=== PATIENT | female | born 1990 | race Caucasian/White ===

== ENCOUNTER 2022-05-17 02:21 | Inpatient (IN) | payer BC, SELFPAY ==
[2022-05-17] VITALS (48 sets, daily range): BP systolic 79–123; BP diastolic 25–80; PULSE 67–125; RESP 16–20; TEMP 36.6–36.9; O2SAT 96–100; BMI 30.3
[2022-05-17 03:08] LABS: Basophils Absolute Auto 0.01 K/uL (0.00-0.30); Basophils Percent Auto 0.1 % (0.0-3.0); Eosinophils Absolute Auto 0.13 K/uL (0.00-0.50); Eosinophils Percent Auto 1.3 % (0.0-7.0); Hematocrit 37.2 % (33.0-51.0); Hemoglobin* 12.7 gm/dL (12.0-16.0); Immature Granulocytes Abs Auto 0.06 K/uL (0.00-0.30); Lymphocytes Absolute Auto 2.84 K/uL (0.90-2.90); Lymphocytes Percent Auto 28.9 % (20-44); Mean Corpuscular HGB Conc 34 gm/dL (32-36); Mean Corpuscular Hemoglobin 31 pg (26-34); Mean Corpuscular Volume 91 fL (80-100); Monocytes Percent Auto 6.7 % (0.0-11.0); Neutrophils Absolute Auto 6.13 K/uL (1.7-7.0); Neutrophils Percent Auto 62.4 % (42.0-72.0); Platelet Count* 331 K/uL (140-440); Red Blood Count 4.07 m/uL (4.00-5.20); Slide Review Reflex No; White Blood Count* 9.83 K/uL (4.50-11.00)
--- NOTE | 2022-05-17 03:13 | ED_ITS ---
HPI - Female Genitourinary General Date Seen: 05/17/22 Chief complaint: Unspecified Complaint, Adult Stated complaint: anal bleeding Time Seen by Provider: 05/17/22 02:30 Source: patient, RN notes reviewed and old records reviewed Mode of arrival: ambulatory Limitations: no limitations History of Present Illness HPI Narrative: Zonia is a 32-year-old female with history of Nexplanon use, otherwise healthy, who comes to the emergency room with concerns regarding rectal bleeding. Patient states that she was engaged in intercourse tonight and states that her partner got ?excited? and his penis entered her anus. She notes that she has had anal sex in the past and that they were using lubrication but she has had bleeding since that time. She states she is sore in the anal area. She denies abdominal pain, fever, vomiting. She states that she has a towel in her underwear and that she can feel blood coming out every time she moves. She denies chest pain lightheadedness or shortness of breath. She states that she did have a period 2 weeks ago but it was very light. She states that she does not have normal periods. Related Data Home Medications Medication Instructions Recorded Confirmed No Known Home Medications 05/17/22 05/17/22 Allergies Allergy/AdvReac Type Severity Reaction Status Date / Time Iodinated Contrast Media Allergy Intermediate Hives Verified 05/17/22 02:35 Penicillins Allergy Intermediate Hives Verified 05/17/22 02:35 Review of Systems Status of ROS: Reports: 10 or more systems reviewed and unremarkable except as noted in History and below Narrative: Patient denies problems with anesthesia in herself or her family. No recent illnesses. Const: Denies: fever or chills ENMT: Denies: throat pain Cardio: Denies: chest pain, palpitations or shortness of breath with exertion Resp: Denies: shortness of breath or cough GI: Denies: abdominal pain, nausea or vomiting : Reports: pain during intercourse (anal); Denies: painful urination Musculo: Denies: back pain Neuro: Denies: headache Psych: Reports: anxiety Endo: Denies: excessive urination Nabil/Lymph: Denies: easy bruising or easy bleeding Allergy/Immuno: Denies: hives [facility] Medical History (Updated 05/17/22 @ 05:21 by Sanam Yao MD) Graves' disease Vitamin D deficiency Surgical History (Updated 05/17/22 @ 04:30 by Caitie Brian MD) Complication of internal fixation device of left humerus Family History (Updated 05/17/22 @ 04:31 by Caitie Brian MD) Other Diabetes Social History (Updated 05/17/22 @ 04:31 by Catiie Brian MD) Narrative: Lives in [place] with her 3 children, age 14, 10 and 6. Not currently employed. She vapes. No alcohol or drug use. Smoking Status: Never smoker Do you use any of these nicotine containing products: None Second hand tobacco smoke exposure: No How often do you have a drink containing alcohol: never How often do you have six or more drinks on one occasion: Never AUDIT-C Alcohol total score: 0 Non-prescribed substance use: denies use Exam Const: Vital Signs, click to edit/add: Vital Signs - 24 hr 05/17/22 02:30 05/17/22 03:09 05/17/22 03:21 Temperature 98.0 F Pulse Rate 95 Pulse Rate [Right Pulse Oximeter] 84 Respiratory Rate 16 Respiratory Rate [ Rectum] 16 Blood Pressure 106/70 Blood Pressure [Ri ght Upper Arm] 123/71 Pulse Oximetry 99 99 Oxygen Delivery Me thod Room Air 05/17/22 03:33 05/17/22 04:01 05/17/22 04:07 Temperature Pulse Rate 80 75 81 Pulse Rate [Right Pulse Oximeter] Respiratory Rate Respiratory Rate [ Rectum] Blood Pressure 107/64 85/62 L 90/67 Blood Pressure [Ri ght Upper Arm] Pulse Oximetry 99 100 100 Oxygen Delivery Me thod 05/17/22 04:12 05/17/22 04:15 05/17/22 04:21 Temperature Pulse Rate 83 74 96 Pulse Rate [Right Pulse Oximeter] Respiratory Rate Respiratory Rate [ Rectum] Blood Pressure 93/72 92/50 L 101/40 L Blood Pressure [Ri ght Upper Arm] Pulse Oximetry 100 100 100 Oxygen Delivery Me thod 05/17/22 04:41 05/17/22 05:11 Temperature 98.5 F Pulse Rate 103 H Pulse Rate [Right Pulse Oximeter] 79 Respiratory Rate 16 Respiratory Rate [ Rectum] Blood Pressure 102/68 Blood Pressure [Ri ght Upper Arm] 110/74 Pulse Oximetry 100 100 Oxygen Delivery Me thod Room Air Documenting provider has reviewed patient's vital signs: yes Common normals: no apparent distress, oriented x3, no limitations and healthy appearing General appearance: cooperative, well kempt and anxious (States that she is scared.) HENMT: Common normals: normocephalic, external ears normal and external nose normal Head and scalp: normocephalic Face and sinus: normal facial exam Nose: external nose normal External ear: external ears normal Mouth: oral and palatal mucosa normal Eye: Common normals: PERRL General eye: normal appearance of both eyes Pupil: PERRL Neck & C-Spine: Common normals: full ROM, no lymphadenopathy and supple Resp: Common normals: normal respiratory effort and clear to auscultation bilaterally Effort & inspection: able to speak in complete sentences Auscultation: clear to auscultation bilaterally Cardio: Common normals: regular rate and regular rhythm Rate: regular rate Rhythm: regular rhythm GI: Common normals: soft to palpation and non-tender Palpation: soft Rectal Exam - Female: no fissure noted and no hemorrhoids noted : Common normals: no CVA tenderness Bladder/kidney exam: no CVA tenderness Speculum exam - vagina: vaginal bleeding Amount: large/heavy and with clots and other (Questionable vaginal laceration with large amount of blood coming from left) OB/external & speculum: Yes vaginal bleeding Other: Unable to clearly see cervix with the large amount of blood that is rapidly filling the vaginal vault. Ring forceps and gauze used to try to clear this but again a rapidly filling vaginal vault. Patient does have discomfort with insertion of the speculum. Anal area appears to be without evidence of trauma. There is no blood coming from this area. Back & Pelvis: Common normals: no CVA tenderness Extremity: Common normals: normal to inspection Neuro: Common normals: oriented x3 Psych: Common normals: mental status grossly normal Appearance: well kempt Skin: Common normals: no rashes or lesions noted General skin exam: no rashes or lesions noted Course Course Hospital Course: Due to the large amount of bleeding I consulted with Dr. Brian, nurse obgyn entry level sales consultant. CBC, basic panel, INR, saline lock, 1 L normal saline and TXA 1 g IV ordered. Type and screen 2 units. Reevaluation(s) Reevaluation #1: Patient noted to become hypotensive. Dr. Brian present at this time. Will be taking patient to the OR as she thinks that she has identified at least 1 or 2 vaginal lacerations. Will transfuse as well and give 1 L saline in addition to original L. Vital Signs Vital signs: Initial Vital Signs Temperature 98.0 F 05/17/22 02:30 Temperature Source Temporal Artery Scan 05/17/22 02:30 Pulse Rate 84 05/17/22 02:30 Respiratory Rate 16 05/17/22 02:30 Blood Pressure 123/71 05/17/22 02:30 Blood Pressure Mean 88 05/17/22 02:30 Blood Pressure Position Sitting 05/17/22 02:30 Pulse Oximetry 99 05/17/22 02:30 Oxygen Delivery Method 05/17/22 02:30 Vital Signs Temperature 98.0 F 05/17/22 02:30 Pulse Rate 84 05/17/22 02:30 Respiratory Rate 16 05/17/22 02:30 Blood Pressure 123/71 05/17/22 02:30 Pulse Oximetry 99 05/17/22 02:30 Oxygen Delivery Method 05/17/22 02:30 Temperature 98.5 F 05/17/22 05:11 Pulse Rate 79 05/17/22 05:11 Respiratory Rate 16 05/17/22 05:11 Blood Pressure 110/74 05/17/22 05:11 Pulse Oximetry 100 05/17/22 05:11 Oxygen Delivery Method 05/17/22 05:11 MDM - Female Genitourinary MDM Narrative Medical decision making narrative: 1. Vaginal wall trauma with bleeding-patient will be taken to the OR under the care of Dr. Brian. Blood pressure 92 systolic at this time. Placed patient in Trendelenburg. Patient is not tachycardic. Hemoglobin 12.7. HCG qualitative serum is negative. 2. Admitted to same-day surgery. Medical Records Attestation: I reviewed the patient's medical records. Lab Data Attestation: I reviewed the patient's lab results. Labs: Lab Results 05/17/22 05/17/22 05/17/22 Range/Units 03:00 03:00 03:40 WBC 9.83 (4.50-11.00) K/uL RBC 4.07 (4.00-5.20) m/uL Hgb 12.7 (12.0-16.0) gm/dL Hct 37.2 (33.0-51.0) % MCV 91 (80-100) fL MCH 31 (26-34) pg MCHC 34 (32-36) gm/dL RDW Coeff of Jackie 12.0 (11.5-15.5) % Plt Count 331 (140-440) K/uL Neut % (Auto) 62.4 (42.0-72.0) % Lymph % (Auto) 28.9 (20-44) % [place] % (Auto) 6.7 (0.0-11.0) % Eos % (Auto) 1.3 (0.0-7.0) % Baso % (Auto) 0.1 (0.0-3.0) % Neut # (Auto) 6.13 (1.7-7.0) K/uL Lymph # (Auto) 2.84 (0.90-2.90) K/uL [place] # (Auto) 0.70 (0.00-0.90) K/UL Eos # (Auto) 0.13 (0.00-0.50) K/uL Baso # (Auto) 0.01 (0.00-0.30) K/uL Abs Immat Gran (auto) 0.06 (0.00-0.30) K/uL INR (0.91-1.10) Sodium (135-149) mmol/L Potassium (3.6-5.1) mmol/L Chloride (96-114) mmol/L Carbon Dioxide (20-32) mmol/L BUN (5-24) mg/dL Creatinine (0.5-1.5) mg/dL Estimated Creat Clear Estimated GFR ml/min Glucose (60-115) mg/dL Calcium (8.4-10.6) mg/dL HCG, Qual Negative (Negative) SARS-CoV-2 (PCR) (Negative) Blood Type O Positive Antibody Screen NEGATIVE Crossmatch ([facility]) See Detail 05/17/22 05/17/22 05/17/22 Range/Units 03:40 03:40 04:10 WBC (4.50-11.00) K/uL RBC (4.00-5.20) m/uL Hgb (12.0-16.0) gm/dL Hct (33.0-51.0) % MCV (80-100) fL MCH (26-34) pg MCHC (32-36) gm/dL RDW Coeff of Jackie (11.5-15.5) % Plt Count (140-440) K/uL Neut % (Auto) (42.0-72.0) % Lymph % (Auto) (20-44) % [place] % (Auto) (0.0-11.0) % Eos % (Auto) (0.0-7.0) % Baso % (Auto) (0.0-3.0) % Neut # (Auto) (1.7-7.0) K/uL Lymph # (Auto) (0.90-2.90) K/uL [place] # (Auto) (0.00-0.90) K/UL Eos # (Auto) (0.00-0.50) K/uL Baso # (Auto) (0.00-0.30) K/uL Abs Immat Gran (auto) (0.00-0.30) K/uL INR 1.06 (0.91-1.10) Sodium 138 (135-149) mmol/L Potassium 3.4 L (3.6-5.1) mmol/L Chloride 105 (96-114) mmol/L Carbon Dioxide 22 (20-32) mmol/L BUN 15 (5-24) mg/dL Creatinine 0.6 (0.5-1.5) mg/dL Estimated Creat Clear 133.69 Estimated GFR 121 ml/min Glucose 152 H (60-115) mg/dL Calcium 8.7 (8.4-10.6) mg/dL HCG, Qual (Negative) SARS-CoV-2 (PCR) Negative SARS-CoV-2 (Negative) Blood Type Antibody Screen Crossmatch ([facility]) Critical Care Time Critical Care Time Critical Care Time: Yes Attestation: The patient required my highest level preparedness to intervene emergently and I personally spent this critical care time directly and personally managing the patient. This critical care time included: Obtaining a history; Examining the patient; Pulse oximetry; Ordering and reviewing of studies; Arranging urgent treatment with development of a management plan; Evaluation of patients response to treatment; Frequent reassessment discussions with other providers. This critical care time was performed to assess and manage the high probability of imminent life-threatening deterioration that could result in multiorgan failure. It was exclusive of separate billable procedures and treating other patients and teaching time. Total Critical Care Time in Minutes: 90 Discharge Plan Discharge Clinical Impression: Vaginal laceration, Vaginal bleeding Patient Disposition: Admitted As Inpatient Condition: Critical
[2022-05-17] MEDS: 0.9 % SODIUM CHLORIDE 1000 ml 1,000 ML IV ×2 (03:18→04:20)
[2022-05-17 03:22] LABS: HCG Qualitative Serum* Negative (Negative)
[2022-05-17 04:00] LABS: Chloride* 105 mmol/L (96-114); Potassium* 3.4 mmol/L (3.6-5.1); Sodium* 138 mmol/L (135-149)
[2022-05-17 04:03] LABS: Blood Urea Nitrogen* 15 mg/dL (5-24); Calcium* 8.7 mg/dL (8.4-10.6); Carbon Dioxide* 22 mmol/L (20-32); Creatinine* 0.6 mg/dL (0.5-1.5); Est. Creatinine Clearance* 133.69; Estimated Glomerular Filt Rate 121 ml/min; Glucose* 152 mg/dL (60-115)
[2022-05-17 04:12] LABS: INR 1.06 (0.91-1.10); Prothrombin Time 14.3 Seconds
--- NOTE | 2022-05-17 04:23 | P.GYNCN_ITS ---
EXTRACT OPERATOR - CN: HPI Data of Consult Date Seen: 05/17/22 Requesting Physician: Dr. Sanam Yao Primary Care Provider: [facility] Provider Generic Consult Narrative Narrative: Josiane Son is a 32 year old female who presents with heavy vaginal bleeding. Bleeding began at around 1:45 AM, following a particularly rough sexual encounter. She reports consentual intercourse with her partner. This was not their first sexual encounter, and she last had intercourse a few days ago. Bleeding has been heavy since 1:45 AM. Upon presentation to ER, she had low BP and Dr. Yao was unable to see intravaginal injury due to the amount of blood. Since that time, patient has developed pain. 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 One . Two vaginal births, one Using Nexplanon for the last 6 years. She has irregular, light bleeding episodes with Nexplanon. Due for replacement in 2022. No hx of abn pap No hx STI cc:: CC: Review of Systems Narrative: + for pelvic pain + for heavy vaginal bleeding + for lightheadedness PFSH PFSH Medical History (Updated 05/17/22 @ 04:37 by Caitie Brian MD) Graves' disease Vitamin D deficiency Surgical History (Updated 05/17/22 @ 04:30 by Caitie Brian MD) Complication of internal fixation device of left humerus Family History (Updated 05/17/22 @ 04:31 by Caitie Brian MD) Other Diabetes Social History (Updated 05/17/22 @ 04:31 by Caitie Brian MD) Narrative: Lives in [place] with her 3 children, age 14, 10 and 6. Not currently employed. She vapes. No alcohol or drug use. Smoking Status: Never smoker Do you use any of these nicotine containing products: None Second hand tobacco smoke exposure: No How often do you have a drink containing alcohol: never How often do you have six or more drinks on one occasion: Never AUDIT-C Alcohol total score: 0 Non-prescribed substance use: denies use Meds Home Medications and Allergies Home Medications Medication Instructions Recorded Confirmed Type No Known Home Medications 05/17/22 05/17/22 History Allergies Allergy/AdvReac Type Severity Reaction Status Date / Time Iodinated Contrast Media Allergy Intermediate Hives Verified 05/17/22 02:35 Penicillins Allergy Intermediate Hives Verified 05/17/22 02:35 EXTRACT OPERATOR - Exam Physical Exam: Vital signs: Temp Pulse Resp BP Pulse Ox O2 Del Method 98.0 F 75 16 85/62 L 100 05/17/22 02:30 05/17/22 04:01 05/17/22 03:09 05/17/22 04:01 05/17/22 04:01 05/17/22 02:30 Narrative: Gen - NAD HEENT - NC/AT Pelvic exam - approximately 500 cc of liquid / clotted blood on bed between patient legs. Mons, labia majora, labia minora, clitoris all normal in appearance. Perineum and anus normal in appearance. Eccymosis noted over vaginal epithelium 2 cm above introitus at 7 o'clock. No active bleeding at this site. Speculum exam reveals active bleeding from vaginal vault, obscuring view. Patient is poorly tolerant of exam due to pain. EXTRACT OPERATOR - Results Labs Labs: Short CBC 05/17/22 Range/Units 03:00 WBC 9.83 (4.50-11.00) K/uL Hgb 12.7 (12.0-16.0) gm/dL Hct 37.2 (33.0-51.0) % Plt Count 331 (140-440) K/uL BMP 05/17/22 03:40 Sodium 138 Potassium 3.4 L Chloride 105 Carbon Dioxide 22 BUN 15 Creatinine 0.6 Glucose 152 H Calcium 8.7 HCG negative. Assessment and Plan Assessment and plan (1) Contusion of vagina: Status: Acute Assessment and Plan: Suspect laceration in upper vagina as cause of heavy, active bleeding. I recommended preparation of two units PRBCs given her low BP and continued bleeding. I also recommended exam under anesthesia with likely vaginal laceration repair. Discussed risks of procedure, including bleeding, infection, damage to surrounding organs, risks of anesthesia. Consent form reviewed with and signed by patient. Will plan for admission for observation after surgery. (2) Vaginal bleeding: Status: Acute
[2022-05-17 04:56] LABS: SARS PCR* Negative SARS-CoV-2 (Negative)
[2022-05-17] MEDS: LACTATED RINGERS 1000 ML 1,000 ML 100 ML IV ×2 (05:04→06:05)
[2022-05-17] MEDS: CLINDAMYCIN 900 MG/6 ML VIAL IVPB (05:20)
[2022-05-17] MEDS: GENTAMICIN 320 MG in 0.9 % SODIUM CHLORIDE 100 ml 100 ML 108 MG IVPB (05:53)
--- NOTE | 2022-05-17 06:50 | W.ANESCHARGE ---
Anesthesia Charges Start Date/Time Anesthesia Start Date: 05/17/22 Anesthesia Start Time: 05:04 Stop Date/Time Anesthesia Stop Date: 05/17/22 Anesthesia Stop Time: 06:45 Summary Emergency: Yes
[2022-05-17] MEDS: fentaNYL 100 MCG/2 ML inj 50 MCG IVP (07:08)
--- NOTE | 2022-05-17 07:09 | W.PM.GYNPROC ---
Procedure Note Date Seen: 05/17/22 Procedure Details: PREOPERATIVE DIAGNOSIS: Vaginal hemorrhage, suspected vaginal laceration POSTOPERATIVE DIAGNOSIS: Rectovaginal laceration PROCEDURE: Repair of rectovaginal laceration SURGEON: Caitie Brian MD ANESTHESIA: General IV FLUIDS: 1500 mL crystalloid URINE OUTPUT: 600 mL EBL: 50 mL FINDINGS: Exam under anesthesia revealed a mobile, anteverted uterus without any palpable adnexal masses. The cervix was normal upon inspection, as was the vaginal vault and upper vagina. There was a deep laceration near the midline of the lower vagina that extended through to the rectum and was approximately 3 cm in length. The external sphincter appeared intact. COMPLICATIONS: None PROCEDURE IN DETAIL: Patient was taken to the operating room with IV running. She was positioned in dorsal lithotomy position with her legs supported with candy-cane stirrups. General anesthesia was administered. She was prepped and draped in the usual sterile fashion. Exam under anesthesia was performed for the above-noted findings. Given the discovery of the rectal laceration, preoperative antibiotics included clindamycin and gentamicin. The perineal skin was intact, but was incised in the midline with a scalpel to provide access to the disrupted rectovaginal tissues. The perineal body had been partially disrupted. The external sphincter was intact, and was not disturbed during the surgery. The rectal mucosa was approximated in a running fashion with 4-0 Vicryl. The internal sphincter was closed with a series of interrupted sutures of 3-0 Vicryl. The perineal body and the vagina above the internal sphincter were then reapproximated with 3-0 Vicryl in an interrupted fashion. The perineal skin was closed in a subcuticular fashion with 3-0 Vicryl, and vaginal epithelium was closed in a running, locked fashion. Rectal exam confirmed complete closure of the defect. Bovie was used in a limited fashion for bleeding vessels, and in sites well removed from the rectal mucosa. Excellent hemostasis was noted at end of procedure. The repair was injected with a total of 10 cc of 1% lidocaine. Patient tolerated procedure well and was taken to recovery area in stable condition.
[2022-05-17] MEDS: ONDANSETRON 2 MG/ML inj 4 MG IVP (07:50)
[2022-05-17] MEDS: HYDROmorphone 0.5 mg/0.5 ml inj IVP (07:50)
[2022-05-17 08:09] LABS: Basophils Absolute Auto 0.02 K/uL (0.00-0.30); Basophils Percent Auto 0.2 % (0.0-3.0); Eosinophils Absolute Auto 0.06 K/uL (0.00-0.50); Eosinophils Percent Auto 0.7 % (0.0-7.0); Hematocrit 28.6 % (33.0-51.0); Hemoglobin* 9.9 gm/dL (12.0-16.0); Immature Granulocytes Abs Auto 0.03 K/uL (0.00-0.30); Mean Corpuscular HGB Conc 35 gm/dL (32-36); Mean Corpuscular Hemoglobin 32 pg (26-34); Mean Corpuscular Volume 92 fL (80-100); Monocytes Percent Auto 7.1 % (0.0-11.0); Neutrophils Absolute Auto 6.47 K/uL (1.7-7.0); Neutrophils Percent Auto 71.7 % (42.0-72.0); Platelet Count* 279 K/uL (140-440); RDW Coefficient of Variation % 11.9 % (11.5-15.5); White Blood Count* 9.02 K/uL (4.50-11.00)
[2022-05-17 08:10] LABS: Slide Review Reflex No
[2022-05-17] MEDS: IBUPROFEN 600 MG TABLET PO ×3 (10:30→21:25)
[2022-05-17] MEDS: HYDROCODONE/ACETAMIN 7.5-325 TABLET 1 TAB PO ×3 (10:31→23:19)
[2022-05-17] MEDS: polyethylene glycoL 3350 17 GM PACK PO (11:33)
[2022-05-17] MEDS: DOCUSATE SODIUM 100 MG CAPSULE PO ×2 (11:33→21:26)
[2022-05-17] MEDS: LACTATED RINGERS 1000 ML 1,000 ML IV (12:27)
--- NOTE | 2022-05-17 12:35 | PC.NURSE ---
Pt. arrived to room 258 @ 0735 from PACU. Quite sedated, pain rated 4-6/10. Stable on room air, sats 100%. IC DESIGN MANAGER noted mildly soft BPs. Pressures consistently below 98/63 this shift. Mildly tachy as well, up to 118. Paged Dr. Trujillo stated unconcerned re: pressures, no new orders. Pressures continued trending down, pt. then started c/o numbness/tingling in hands and feet, and dizziness, feeling very fatigued. Initiated rapid response and paged MD again. verbal order for 1L bolus received via phone. During this time, pt. w/emesis after eating applesauce. Currently reclined in chair, bolus running, and mother with her. Has breakfast tray. Nausea subsided. Scant vaginal/rectal bleeding, voided 600cc.
[2022-05-17] MEDS: ACETAMINOPHEN 325 MG TABLET 650 MG PO (13:54)
--- NOTE | 2022-05-17 15:12 | PC.NURSE ---
Addendum entered by Maia Yeh RN 05/17/22 20:26: Addendum: P/C updated to Ronnie of Hgb 8.1. Initiated order for 2 units PRBCs. Redraw of Hgb tomorrow morning. Pt. continues to have medium sized clots w/voiding, though minimal blood noted on pad she is wearing. MD aware, no new orders. Transfusion started @ 1725, tolerating well. BP 89/58 HR 86 at 1-hour check. Updated EN Wiley. Given scheduled stool softeners. Pain remains 4-10. Original Note: Paged Dr. Trujillo to updated regarding blood clots viewed within hat after urination, as well as continued symptoms of dizziness. Stat CBC ordered, RN to call back with update on Hgb. At that time will determine if going to transfuse patient. Pt. able to fall asleep for a short time before this. BOlus was completed w/out issue. Dizziness most prominent when up walking, but also while resting. Tolerating PO intake.
[2022-05-17 15:52] LABS: Basophils Percent Auto 0.1 % (0.0-3.0); Hematocrit 23.3 % (33.0-51.0); Hemoglobin* 8.1 gm/dL (12.0-16.0); Immature Granulocytes Abs Auto 0.12 K/uL (0.00-0.30); Lymphocytes Percent Auto 6.5 % (20-44); Mean Corpuscular HGB Conc 35 gm/dL (32-36); Mean Corpuscular Hemoglobin 32 pg (26-34); Mean Corpuscular Volume 92 fL (80-100); Monocytes Percent Auto 2.8 % (0.0-11.0); Neutrophils Percent Auto 89.5 % (42.0-72.0); Platelet Count* 237 K/uL (140-440); RDW Coefficient of Variation % 12.1 % (11.5-15.5); Red Blood Count 2.53 m/uL (4.00-5.20); White Blood Count* 11.36 K/uL (4.50-11.00)
[2022-05-17 15:53] LABS: Slide Review Reflex No
[2022-05-17] MEDS: SIMETHICONE 80 MG TAB.CHEW 160 MG PO (17:16)
--- NOTE | 2022-05-17 19:23 | PM.GYNPNPO ---
TIRE DESIGN ENGINEER - A/P Assessment and plan (1) Contusion of vagina: Status: Acute (2) Vaginal bleeding: Status: Acute Postoperative Procedures: Procedures Operation Date: 05/17/22 05:10 Actual Procedure Side Surgeon p Vaginal and Rectal Laceration Repair Caitie Brian MD Time Spent With Patient Time: Total time spent is greater than 50% in coordination of care (as documented) at patient's floor/unit and/or counseling patient: Time with patient: less than 15 minutes TIRE DESIGN ENGINEER- PN:Subj Post-Op Subjective Time Seen by Provider: 19:23 Date Seen: 05/17/22 Post Operative Details: POD#0 from perineal laceration repairt. Notified by the patient's nurse that she was feeling very lightheaded when she was standing. She continues to have moderately low blood pressure with a normal pulse. Her baseline blood pressures are 90s/50s-60s. Her pulse was varying from 60s-110's. Repeat CBC was performed stat. The hemoglobin returned at 8.1. Because the patient is symptomatic with this anemia she will be receiving 2 units of packed red blood cells. I will recheck a CBC in the morning and she will likely be able to be discharged tomorrow. TIRE DESIGN ENGINEER-PN: Obj Exam Physical Exam: Vital signs: Temp Pulse Resp BP Pulse Ox O2 Del Method 98.2 F 88 19 102/57 L 99 05/17/22 17:40 05/17/22 17:40 05/17/22 17:40 05/17/22 17:40 05/17/22 17:40 05/17/22 14:41 Urinary Catheter Management: Urethral: Cath placed during this visit: yes, but has since been removed by the nurse Reason for continuing: surgical procedure Insertion date: 05/17/22 Insertion time: 05:53 Removal date: 05/17/22 Removal time: 06:38 TIRE DESIGN ENGINEER - PN: Obj Data Labs Labs: Laboratory Results - last 24 hr 05/17/22 05/17/22 05/17/22 03:00 03:00 03:40 WBC 9.83 RBC 4.07 Hgb 12.7 Hct 37.2 MCV 91 MCH 31 MCHC 34 RDW Coeff of Jackie 12.0 Plt Count 331 Neut % (Auto) 62.4 Lymph % (Auto) 28.9 [place] % (Auto) 6.7 Eos % (Auto) 1.3 Baso % (Auto) 0.1 Neut # (Auto) 6.13 Lymph # (Auto) 2.84 [place] # (Auto) 0.70 Eos # (Auto) 0.13 Baso # (Auto) 0.01 Abs Immat Gran (auto) 0.06 INR Sodium Potassium Chloride Carbon Dioxide BUN Creatinine Estimated Creat Clear Estimated GFR Glucose Calcium HCG, Qual Negative SARS-CoV-2 (PCR) Blood Type O Positive Antibody Screen NEGATIVE Crossmatch ([facility]) See Detail 05/17/22 05/17/22 05/17/22 03:40 03:40 03:40 WBC 9.02 RBC 3.10 L Hgb 9.9 L Hct 28.6 L MCV 92 MCH 32 MCHC 35 RDW Coeff of Jackie 11.9 Plt Count 279 Neut % (Auto) 71.7 Lymph % (Auto) 20.0 [place] % (Auto) 7.1 Eos % (Auto) 0.7 Baso % (Auto) 0.2 Neut # (Auto) 6.47 Lymph # (Auto) 1.80 [place] # (Auto) 0.60 Eos # (Auto) 0.06 Baso # (Auto) 0.02 Abs Immat Gran (auto) 0.03 INR 1.06 Sodium 138 Potassium 3.4 L Chloride 105 Carbon Dioxide 22 BUN 15 Creatinine 0.6 Estimated Creat Clear 133.69 Estimated GFR 121 Glucose 152 H Calcium 8.7 HCG, Qual SARS-CoV-2 (PCR) Blood Type Antibody Screen Crossmatch ([facility]) 05/17/22 05/17/22 04:10 15:32 WBC 11.36 H RBC 2.53 L Hgb 8.1 L Hct 23.3 L MCV 92 MCH 32 MCHC 35 RDW Coeff of Jackie 12.1 Plt Count 237 Neut % (Auto) 89.5 H Lymph % (Auto) 6.5 L [place] % (Auto) 2.8 Eos % (Auto) 0.0 Baso % (Auto) 0.1 Neut # (Auto) 10.20 H Lymph # (Auto) 0.70 L [place] # (Auto) 0.30 Eos # (Auto) 0.00 Baso # (Auto) 0.00 Abs Immat Gran (auto) 0.12 INR Sodium Potassium Chloride Carbon Dioxide BUN Creatinine Estimated Creat Clear Estimated GFR Glucose Calcium HCG, Qual SARS-CoV-2 (PCR) Negative SARS-CoV-2 Blood Type Antibody Screen Crossmatch ([facility])
[2022-05-18 01:33] VITALS: BP 81/50; PULSE 80; RESP 16; TEMP 36.7; O2SAT 96
[2022-05-18 03:00] VITALS: BP 92/54; PULSE 79; RESP 16; TEMP 36.8; O2SAT 97
[2022-05-18] MEDS: IBUPROFEN 600 MG TABLET PO ×2 (04:13→10:03)
[2022-05-18] MEDS: MAG HYDROX/ALUMINUM HYD/SIMETH 30 ML ORAL.SUSP 15 ML PO (05:50)
[2022-05-18 07:00] LABS: Basophils Absolute Auto 0.01 K/uL (0.00-0.30); Basophils Percent Auto 0.1 % (0.0-3.0); Eosinophils Absolute Auto 0.03 K/uL (0.00-0.50); Eosinophils Percent Auto 0.3 % (0.0-7.0); Hematocrit 29.7 % (33.0-51.0); Immature Granulocytes Abs Auto 0.07 K/uL (0.00-0.30); Lymphocytes Absolute Auto 3.09 K/uL (0.90-2.90); Lymphocytes Percent Auto 34.4 % (20-44); Mean Corpuscular HGB Conc 34 gm/dL (32-36); Mean Corpuscular Hemoglobin 30 pg (26-34); Mean Corpuscular Volume 88 fL (80-100); Monocytes Percent Auto 7.2 % (0.0-11.0); Neutrophils Absolute Auto 5.12 K/uL (1.7-7.0); Neutrophils Percent Auto 57.2 % (42.0-72.0); Platelet Count* 189 K/uL (140-440); Red Blood Count 3.36 m/uL (4.00-5.20); White Blood Count* 8.97 K/uL (4.50-11.00)
[2022-05-18 07:05] LABS: Slide Review Reflex No
--- NOTE | 2022-05-18 07:31 | PC.NURSE ---
[id number]: Patient pleasant and cooperative. Soft BP's throughout shift. Monitored Q1H. Denied lightheadedness/dizziness. Denied N/V. Rates pain 3-5/10. PRN [place] x1 for relief. C/o chest pain. EKG read NSR w/1 degree AV block. MD updated. Maalox ordered and administered. Tolerating regular diet. Voiding. No clots noted in urine during shift. Mother at bedside and assisting with cares. SBA.
[2022-05-18 08:09] VITALS: BP 92/58; PULSE 69; RESP 16; TEMP 36.8; O2SAT 100
[2022-05-18] MEDS: polyethylene glycoL 3350 17 GM PACK PO (09:09)
[2022-05-18] MEDS: DOCUSATE SODIUM 100 MG CAPSULE PO (09:09)
--- NOTE | 2022-05-18 09:09 | P.GYNPN_ITS ---
RESIDENTIAL PROGRAM MANAGER - A/P Assessment and plan (1) Vaginal bleeding: Problem details: Resolved Status: Acute Assessment and Plan: Status post transfusion of 2 units packed red blood cells. Hemoglobin stable. (2) Vaginal laceration: Problem details: Status post repair of rectovaginal laceration, stable. Status: Acute Assessment and Plan: Will recommend b.i.d. stool softener at discharge. Pelvic rest for 6 weeks. (3) Pleuritic chest pain: Status: Acute Assessment and Plan: Consult hospitalist. Postoperative Procedures: Procedures Operation Date: 05/17/22 05:10 Actual Procedure Side Surgeon p Vaginal and Rectal Laceration Repair Caitie Brian MD Postoperative day: 1 Postoperative status: doing well Postoperative plan: routine post-op care Time Spent With Patient Time: Total time spent is greater than 50% in coordination of care (as documented) at patient's floor/unit and/or counseling patient: Time with patient: less than 15 minutes RESIDENTIAL PROGRAM MANAGER- PN:Subj Post-Op Subjective Time Seen by Provider: 09:09 Date Seen: 05/18/22 Post Operative Details: Post-operative day number 1: status post repair of rectovaginal laceration. The patient states that she is experiencing no vaginal bleeding or pelvic pain. She still has some rectal bleeding with using the bathroom. She is voiding wi thout difficulty. She has not a bowel movement since surgery. Her main complaint this morning is chest pain. The pain is located in the center of her chest, below the sternum. It is nonradiating. It is worse with deep inspiration and with physical activity such as walking. The pain started at about 4:00 a.m. this morning. She reportedly had an EKG with nonspecific findings. She was also given oral Maalox, and did not help the pain. RESIDENTIAL PROGRAM MANAGER-PN: Obj Exam Physical Exam: Vital signs: Temp Pulse Resp BP Pulse Ox O2 Del Method 98.2 F 69 16 92/58 L 100 05/18/22 08:09 05/18/22 08:09 05/18/22 08:09 05/18/22 08:09 05/18/22 08:09 05/18/22 08:09 Constitutional: Constitutional: no acute distress and cooperative Comments: Winces when takes a deep breath Routine Respiratory Exam: Respiratory: Present CTA bilaterally Comments: Possible decreased breath sounds on the right Routine Cardiovascular Exam: Cardiovascular: Present RRR Routine Abdominal Exam: Abdominal: Present soft; Absent distended or tenderness Urinary Catheter Management: Urethral: Cath placed during this visit: yes, but has since been removed by the nurse Reason for continuing: surgical procedure Insertion date: 05/17/22 Insertion time: 05:53 Removal date: 05/17/22 Removal time: 06:38 RESIDENTIAL PROGRAM MANAGER - PN: Obj Data Labs Labs: Laboratory Results - last 24 hr 05/17/22 05/17/22 05/18/22 03:40 15:32 06:09 WBC 11.36 H 8.97 RBC 2.53 L 3.36 L Hgb 8.1 L 10.0 L Hct 23.3 L 29.7 L MCV 92 88 MCH 32 30 MCHC 35 34 RDW Coeff of Jackie 12.1 15.0 Plt Count 237 189 Neut % (Auto) 89.5 H 57.2 Lymph % (Auto) 6.5 L 34.4 [place] % (Auto) 2.8 7.2 Eos % (Auto) 0.0 0.3 Baso % (Auto) 0.1 0.1 Neut # (Auto) 10.20 H 5.12 Lymph # (Auto) 0.70 L 3.09 H [place] # (Auto) 0.30 0.60 Eos # (Auto) 0.00 0.03 Baso # (Auto) 0.00 0.01 Abs Immat Gran (auto) 0.12 0.07 Blood Type O Positive Antibody Screen NEGATIVE Crossmatch (AHG) See Detail
--- NOTE | 2022-05-18 10:26 | CRLHL7_ITS ---
For Patients: As a result of the Century Cures Act, medical imaging exams and procedure reports are released immediately into your electronic medical record. You may view this report before your referring provider. If you have questions, please contact your health care provider. INDICATION: Chest pain TECHNIQUE: Chest 2 views. COMPARISON: None FINDINGS: The heart size and central vascular pattern are within the normal range. The lungs are clear. No pleural effusion, pneumothorax, pneumomediastinum or acute osseous abnormality is seen. IMPRESSION: Unremarkable chest. Dictated by Abelino Sarmiento MD @ 05/18/2022 11:37:19 AM (Electronically Signed)
--- NOTE | 2022-05-18 10:38 | PM.IMCN1 ---
Date of Consult Consult date: 05/18/22 Requesting Physician: [facility] Primary Care Provider: Yary Provider Generic Consult Narrative Narrative: Josiane Son is a 32 year old female seen in consultation for chest pain. She is admitted to the hospital for vaginal bleeding secondary to a rectal vaginal tear. This was repaired operatively. She had anemia and received transfusion. About 4:00 a.m. this morning she reported having pain in her lower mid sternum. The pain was associated with taking deep breaths. She has not had previous chest pain problems before she denies any previous history of cardiac disease pulmonary disease, bleeding or clotting disorders. She has not had recent respiratory illness. No fever or dyspnea. No difficulties with swallowing. She has no family history of cardiac or pulmonary disease or thrombophilia. Review of Systems Narrative: She reports other than her vaginal rectal problem she has been feeling well. She has no other recent health concerns. She reported that yesterday she had some edema in both legs. She says it is much better today. PFSH PFSH Medical History Graves' disease Vitamin D deficiency Surgical History Complication of internal fixation device of left humerus Family History (Updated 05/18/22 @ 10:42 by Hood Agrawal MD) Mother Diabetes Social History (Updated 05/17/22 @ 04:31 by Caitie Brian MD) Narrative: Lives in [place] with her 3 children, age 14, 10 and 6. Not currently employed. She vapes. No alcohol or drug use. Smoking Status: Never smoker Do you use any of these nicotine containing products: None Second hand tobacco smoke exposure: No How often do you have a drink containing alcohol: never How often do you have six or more drinks on one occasion: Never AUDIT-C Alcohol total score: 0 Non-prescribed substance use: denies use Meds Home Medications and Allergies Allergies Allergy/AdvReac Type Severity Reaction Status Date / Time Iodinated Contrast Media Allergy Intermediate Hives Verified 05/17/22 02:35 Penicillins Allergy Intermediate Hives Verified 05/17/22 02:35 Exam Narrative: Exam Narrative: She is alert and appears in no distress. She gives her own history. Eyes normal. Oropharynx normal. Neck is supple without mass or adenopathy. No jugular venous distension. Respirations are clear to auscultation. No wheezing rales rhonchi. Cardiovascular: S1, S2, regular rate and rhythm. No murmur gallop or rub. Abdomen: Bowel sounds active. Abdomen is soft without tenderness or mass. Palpation over her chest wall shows mild tenderness over the mid low sternum. No evidence of bruising or trauma in this area. Extremities with intact pro pulses. She has trace edema in her ankles. Peripheral perfusion. Const: Vital Signs, click to edit/add: Vital Signs - 24 hr 05/17/22 11:30 05/17/22 12:47 05/17/22 12:31 Temperature 98.3 F Pulse Rate Pulse Rate [Left P ulse Oximeter] 78 108 H 96 Respiratory Rate 16 16 Blood Pressure Blood Pressure [Ri ght Arm] 84/50 L 87/25 L 84/61 L Pulse Oximetry 100 99 Oxygen Delivery Vt thod Room Air Room Air 05/17/22 12:27 05/17/22 13:11 05/17/22 13:41 Temperature 98.2 F 98.2 F Pulse Rate Pulse Rate [Left P ulse Oximeter] 102 H 109 H 88 Respiratory Rate 18 18 Blood Pressure Blood Pressure [Ri ght Arm] 84/61 L 87/51 L 84/54 L Pulse Oximetry 100 100 97 [facility] Room [facility] Room Air 05/17/22 14:41 05/17/22 17:17 05/17/22 15:00 Temperature 98.3 F Pulse Rate 88 Pulse Rate [Left P ulse Oximeter] 81 88 Respiratory Rate 16 20 Blood Pressure 95/60 Blood Pressure [Ri ght Arm] 114/54 L Pulse Oximetry 97 Oxygen Delivery Vt thod Room Air 05/17/22 17:40 05/17/22 18:25 05/17/22 20:18 Temperature 98.2 F 98.1 F 98.1 F Pulse Rate 88 81 81 Pulse Rate [Left P ulse Oximeter] Respiratory Rate 19 18 18 Blood Pressure 102/57 L 101/67 101/67 Blood Pressure [Ri ght Arm] Pulse Oximetry 99 100 100 Oxygen Delivery Vt thod 05/17/22 20:34 05/17/22 21:19 05/17/22 23:02 Temperature 98.0 F 97.8 F 97.8 F Pulse Rate 74 75 75 Pulse Rate [Left P ulse Oximeter] Respiratory Rate 20 18 18 Blood Pressure 97/63 97/63 97/63 Blood Pressure [Ri ght Arm] Pulse Oximetry 99 98 98 Oxygen Delivery Me thod 05/17/22 23:13 05/18/22 01:33 05/17/22 19:00 Temperature 98.2 F 98.0 F 98.3 F Pulse Rate 67 80 Pulse Rate [Left P ulse Oximeter] 70 Respiratory Rate 18 16 18 Blood Pressure 93/56 L 81/50 L Blood Pressure [Ri ght Arm] 103/60 Pulse Oximetry 97 96 100 Oxygen Delivery Me thod Room Air 05/17/22 23:00 05/18/22 03:00 05/18/22 08:09 Temperature 98.0 F 98.2 F 98.2 F Pulse Rate Pulse Rate [Left P ulse Oximeter] 85 79 69 Respiratory Rate 16 16 16 Blood Pressure Blood Pressure [Ri ght Arm] 83/46 L 92/54 L 92/58 L Pulse Oximetry 96 97 100 Oxygen Delivery Me thod Room Air Room Air Room Air Documenting provider has reviewed patient's vital signs: yes Labs Labs: Short CBC 05/17/22 05/18/22 Range/Units 15:32 06:09 WBC 11.36 H 8.97 (4.50-11.00) K/uL Hgb 8.1 L 10.0 L (12.0-16.0) gm/dL Hct 23.3 L 29.7 L (33.0-51.0) % Plt Count 237 189 (140-440) K/uL ECG Attestation: I personally reviewed and interpreted this ECG as follows: Interpretation: Electrocardiogram shows normal sinus rhythm with a heart rate of 86. She has no ST-T changes normal intervals. No abnormalities. Assessment and Plan Assessment and plan (1) Pleuritic chest pain: Status: Acute Assessment and Plan: Sternal chest pain with pleuritic quality. I favor chest wall pain primarily. Other causes of pleuritic chest pain are also possible. Less likely is a cardiac source or esophageal source of pain. Will use of ibuprofen for postoperative pain as well as pleuritic chest pain but will add in omeprazole while taking ibuprofen. (2) Vaginal laceration: Problem comment: Status post repair of rectovaginal laceration, stable. Status: Acute (3) Vaginal bleeding: Problem comment: Resolved Status: Acute Plan Will follow along while she is in the hospital. No further outpatient evaluation is warranted unless symptoms are getting worse. See primary care doctor if still having chest pain in 1 week. Recommend ibuprofen with omeprazole for postoperative pain.
[2022-05-18 11:38] LABS: C Reactive Protein* 1.3 mg/dL (0.5-1.0)
[2022-05-18 11:45] VITALS: BP 84/46; PULSE 96; RESP 16; TEMP 36.8; O2SAT 98
[2022-05-18 11:58] LABS: Troponin I* < 0.01 ng/mL (0.01-0.04)
[2022-05-18] MEDS: OMEPRAZOLE 20 MG CAPSULE DR PO (12:35)
--- NOTE | 2022-05-18 15:39 | PC.NURSE ---
Discharge: Patient pleasant and cooperative. BP soft this morning but asymptomatic, denied dizziness/ lightheadedness with transfer/ambulation, Dr. Agrawal updated with no new orders. Pain well controlled with PRN medication. Tolerating regular diet. Patient denies blood clots in urine today. Discharge instructions given along with Pramoxine foam and tucks pads, instructions given on how to use both. Discussed discharge instructions, new medications and follow up appointments, questions answered as needed. Patient independent with ADLs and ambulation. Discharged @ 1538 via wheelchair, mother to take home.
== END 2022-05-18 15:38 | disposition home or self-care (01) | DRG 518 ==
LOC: ED 05:04 → SS 05:13 → MEDSURG 07:58 → SS 05-18 15:29 → MEDSURG 05-18 15:29
PROVIDERS: Family Medicine; Obstetrics & Gynecology; Admitting Provider Obstetrics & Gynecology; Emergency Provider Family Medicine; Visit Provider Obstetrics & Gynecology
PROC: 0UQG0ZZ Repair Vagina, Open Approach (ICD-10-PCS; principal; 2022-05-17 05:00)
DX: S31.41XA Laceration without foreign body of vagina and vulva, initial encounter (principal); S36.63XA Laceration of rectum, initial encounter; S30.23XA Contusion of vagina and vulva, initial encounter; N93.0 Postcoital and contact bleeding; D62 Acute posthemorrhagic anemia; R07.81 Pleurodynia; E05.00 Thyrotoxicosis with diffuse goiter without thyrotoxic crisis or storm; E55.9 Vitamin D deficiency, unspecified
CPT/HCPCS: 36415; 36430; 71046; 80048; 84484; 84703; 85025; 85610; 86140; 86850; 86900; 86901; 86922; 87635; 93005; 940; 99140; 99285; 99291; 99292; A4338; A9270; J0330; J1170; J1580; J2250; J2370; J2405; J2704; J3010; J7030; J7120; P9016; S0077

== ENCOUNTER 2024-01-02 08:20 | Outpatient (CLI) | payer BC, SELFPAY ==
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
--- OUTSIDE RECORDS SUMMARY | 2024-01-02 08:23 | XMS_ITS | Clinical Summary ---
Author Name Unknown Organization [facility] Address [place], [place] [address] Care Team Providers Care Sourcing Coordinator Name Role Phone Viktorlauren Donna Escobar MD Unavailable Pcp, No Primary Care Provider Unavailabl e Allergies Active Allergy Reactions Criticality Noted Date Comments Penicillins 12/15/2006 Medications Medication Sig Dispensed Refills Start Date End Date Status norgestrel-ethinyl estradiol, 0.3-30 mg-mcg, (LO-OVRAL, 28,) 0.3-30 mg-mcg tabletIndications:Cont raception Take 1 tablet by mouth once daily. 3 Packet 3 05/18/2014 Active Active Problems Problem Noted Date Diagnosed Date Graves disease 03/14/2013 Overview: 05/2013: Symptomatic since fall; frequent BMs, weight loss of 12 lbs, palpitations, hair thinning, brittle nails, heat intolerance. FreeT4 2.4, TSH < 0.01 24 hour Iodine uptake 69.1%, diffuse. Took Tapazole x 2 months then lost to follow up. 02/2014: Gained weight, hair thinning, no other symptoms. 02/2014: TSH and FreeT4 normal (on no treatment) Dysthymia 09/12/2012 Vitamin D deficiency 03/13/2010 Resolved Problems Problem Noted Date Diagnosed Date Resolved Date Supervision of other normal 09/09/2011 03/10/2013 Fetus or affected by other forms of other and unspecified morphological and functional abnormalities of placenta 12/29/2007 Supervision of normal first 12/18/2007 07/11/2009 Immunizations Name Administration Dates Next Due Human Papilloma Virus Vaccine 05/18/2014, 013 Tdap 03/10/2013 Family History Medical History Relation Name Comments Diabetes Maternal Grandmother Relation Name Status Comments Maternal Grandmother Social History Tobacco Use Types Packs/Day Years Used Date Smoking Tobacco: Never Smokeless Tobacco: Never Tobacco Cessation:Counseling Given: Yes Comments:never Alcohol Use Standard Drinks/Week Comments No 0 (1 standard drink = 0.6 oz pur e alcohol) Sex and Gender Information Value Date Recorded Sex Assigned at Not on file Gender Identity Not on file Sexual Orientation Not on file Obstetrics History Para Term AB IAB SAB Ectopic Multiple Livin g Live Births 2 2 1 1 2 2 Date Outcome GA Total Labor Labor/2nd/3rd Weight Sex Delivery Anes PTL Alyssa A1 A5 Name Cl in 01/04 35w 6d 2.04 kg (4 lb 8 oz) F Natalie ng suppe s 03/27 Term 38w 1d 3.06 kg (6 lb 12 oz) Vag Natalie ng 8 9 iris ryees tom ta Delivery Location:[facility] Last Filed Vital Signs Vital Sign Reading Time Taken Comments Blood Pressure 108/72 11/19/2014 1:56 PM ENVIRONMENTAL SERVICES TECHNICIAN Pulse 65 11/19/2014 1:56 PM ENVIRONMENTAL SERVICES TECHNICIAN Temperature 36.6 ??C (97.9 ??F) 11/19/2014 1:58 PM CS T Respiratory Rate 16 12/30/2007 4:26 PM CDT Oxygen Saturation 99% 11/19/2014 1:56 PM ENVIRONMENTAL SERVICES TECHNICIAN Inhaled Oxygen Concentration - - Weight 61.7 kg (136 lb) 11/19/2014 1:56 PM ENVIRONMENTAL SERVICES TECHNICIAN Height 148.2 cm (4' 10.35) 11/19/2014 1:[address] Body Mass Index 28.09 11/19/2014 1:56 PM ENVIRONMENTAL SERVICES TECHNICIAN Plan of Treatment Health Maintenance Due Date Last Done Comments Depression screening for age 12+ 2001 BMI (ht and wt on same day) for age 18+ 2007 Hepatitis C screening for age 18-79 2007 Tetanus booster 03/10/2023 03/10/2013 COVID-19 vaccine series (2022- season) 2023 04/03/2022 Pap test for age 21-65 08/22/2023 , 08/22/2020, 09/30/2016, Additional history exists Influenza for age 9-49 05/16/2024 HIV for age 15-65 Completed 09/09/2011, 07/07/2007 Tdap Completed 03/10/2013 Pneumococcal series for age 6-64 Aged Out No longer eligible based on patient's age to complete this topic Procedures Procedure Name Priority Date/Time Associated Diagnosis Comments SERVICE ADVISOR THIN PREP PAP SCREEN IMAGED Routine 08/22/2020 1:30 PM ENVIRONMENTAL SERVICES TECHNICIAN ANTI HIV 1/2 Routine 09/09/2011 3:26 PM ENVIRONMENTAL SERVICES TECHNICIAN Supervision of other normal from Last 3 Months or Most Recently Relevant to Health Maintenance Results * SERVICE ADVISOR THIN PREP PAP SCREEN IMAGED (08/22/2020 1:30 PM ENVIRONMENTAL SERVICES TECHNICIAN) Case Report Gynecologic Cytology Report ? Case: [id number] ? Authorizing Provider: ??Unknown, Doctor ?Collected: ? 08/22/2020 1330 ? Ordering Location: ? [facility] ?Received: ?08/23/2020 1800 ? First Screen: ?Ariadna Mehta ? Pathologist: ? Dawna Anderson MD ? Specimen: ?SERVICE ADVISOR ThinPrep Vial Screening, Cervical/Vaginal ? 09/05/2020 7:21 AM [facility] INTERPRETATION/ RESULT NEGATIVE FOR INTRAEPITHELIAL LESION OR MALIGNANCY (NIL) (none) 09/05/2020 7:21 AM [facility] R NON-NEOPLASTIC FINDING(S) Reactive cellular changes associated with inflammation/repa ir 09/05/2020 7:21 AM [facility] ORGANISM(S) Shift in rui suggestive of bacterial vaginosis 09/05/2020 7:21 AM [facility] SPECIMEN ADEQUACY Satisfactory for evaluation Endocervical component present 09/05/2020 7:21 AM [facility] HPV REQUEST HPV and PAP 09/05/2020 7:21 AM [facility] Date of LMP 08/08/2020 09/05/2020 7:21 AM [facility] Additional Information 09/05/2020 7:21 AM [facility] Comment: Interpreted at [facility], Central Laboratory - [address], [place] [address] Automated Review Successful 09/05/2020 7:21 AM [facility] Comment:Specimen processed s uccessfully by automated sugar sampler device, ThinPrep Imaging System, [employer] ANCILLARY TESTING SERVICE ADVISOR HPV Ordered, Please see separate report 09/05/2020 7:21 AM [facility] Note The pap test is a screening technique, not a diagnostic procedure. It is used primarily to screen for squamous cancers and precursor lesions. Published studies have shown that it is subject to both false negative and false positive results. The pap test should not be used as the sole means to diagnose or exclude pre-malignant and malignant lesions. 09/05/2020 7:21 AM [facility] Other (Cervical/Vagina l) 08/22/2020 1:30 PM ENVIRONMENTAL SERVICES TECHNICIAN 08/23/2020 6:00 PM ENVIRONMENTAL SERVICES TECHNICIAN Doctor Unknown PATHOLOGY/CYTOLOGY [facility] LABORAT[facility] [address] [place] [address], * ANTI HIV 1/2 (09/09/2011 3:26 PM ENVIRONMENTAL SERVICES TECHNICIAN) ANTI HIV 1/2 Non-reacti ve [facility] Blood specimen (specimen) BLOOD SPECIMEN / Unknown 09/09/2011 3:26 PM ENVIRONMENTAL SERVICES TECHNICIAN 09/09/2011 3:18 PM ENVIRONMENTAL SERVICES TECHNICIAN Karen Ibarra SEND OUTS [facility]ORY INTERNAL ZIP [id number] [place] [address] from Last 3 Months or Most Recently Relevant to Health Maintenance Advance Directives * Full Code (Latest Code Status on File) Date Activated Date Inactivated Comments 12/30/2007 4:37 PM 12/30/2007 7:21 PM Care Teams Sourcing Coordinator Relationship Specialty Start Date End Date Pcp, No . PCP - General 07/04/15 Donna Villareal MD [address] [place] [id number] [employer] Obstetrics and Gynecology 12/06/11
--- OUTSIDE RECORDS SUMMARY | 2024-01-02 08:23 | XMS_ITS | Clinical Summary ---
Author Name Unknown Organization [facility] Address [address] [place] [address] Care Team Providers Care Network Strategist Name Role Phone No Ref-Primary, Physician Primary Care Provider Allergies Active Allergy Reactions Criticality Noted Date Comments Contrast Dye Hives Medium 12/21/2021 12/21/2021 Pt does not know if she is allergic to MRI or CT contrast dye. Herbert Banks () [facility] MRI Department. Penicillins Swelling,Rash Medium 12/21/2021 Medications [...] 04/03/2022 1:25 PM CDT Plan of Treatment Health Maintenance Due Date Last Done Comments ADVANCE CARE PLANNING 1989 YEARLY PREVENTIVE VISIT 1989 Pneumococcal Vaccine: Pediatrics (0 to 5 Years) and At-Risk Patients (6 to 64 Years) (1 of 2 - PCV) 1995 HEPATITIS B IMMUNIZATION (1 of 3 - 19+ 3-dose series) 01/09/2008 HPV IMMUNIZATION (3 - 3-dose series) 08/10/2014 05/18/2014, 03/10/2013 ANNUAL REVIEW OF HM ORDERS 04/03/2023 04/03/2022 COVID-19 Vaccine (3 - 2022- season) 2023 04/03/2022, 10/03/2021 INFLUENZA VACCINE (#1) 2023 10/03/2021, 2015 PHQ-2 (once per calendar year) 2023 04/03/2022 HPV TEST 11/13/2026 11/13/2021, 12/0 04/2020, 08/22/2020 PAP 11/13/2026 11/13/2021, 12/0 04/2020, 08/22/2020 DTAP/TDAP/TD IMMUNIZATION (6 - Td or Tdap) 03/12/2032 03/12/2022, 06/21/2016, 03/10/2013, Additional history exists HEPATITIS C SCREENING Completed 04/03/2022 HIV SCREENING Completed 04/03/2022 IPV IMMUNIZATION Aged Out No longer e ligible based on patient's age to complete this topic MENINGITIS IMMUNIZATION Aged Out No l onger eligible based on patient's age to complete this topic RSV MONOCLONAL ANTIBODY Aged Out No l onger eligible based on patient's age to complete this topic Procedures Procedure Name Priority Date/Time Associated Diagnosis Comments HIV ANTIGEN ANTIBODY COMBO Routine 04/03/2022 2:15 PM CDT Screening for HIV (human immunodeficiency virus) HEPATITIS C SCREEN REFLEX TO HCV RNA QUANT AND GENOTYPE Routine 04/03/2022 2:15 PM CDT Need for hepatitis C screening test PAP SMEAR - HIM PATIENT REPORTED Routine 11/13/2021 12:00 PM CERTIFIED MASTER LOCKSMITH from Last 3 Months or Most Recently [...] [facility] C[facility]/PROT/ENDO UM Specialty Core/Prot/Endo [address] [facility] [address] [facility], [address] [place] [address] * Hepatitis C Screen Reflex to HCV [...] been established for newborns, infants, and children. uSyapa Bridges MD LAB - BLOOD ORDERABL ES [facility] SPECIALTY CORE/PROT/ENDO UM Specialty Core/Prot/Endo [address] [facility] [address] Building, [address] [address], [facility] [phone] * PAP Smear - HIM Patient Reported (11/13/2021 12:00 PM CERTIFIED MASTER LOCKSMITH) PAP Smear - HIM Patient Reported Negative EXTERNAL LAB 11/13/2021 12:0 0 PM CERTIFIED MASTER LOCKSMITH Narrative EXTERNAL LAB - 11/13/2021 12:00 PM CERTIFIED MA[employer]SMITH Suyapa Bridges MD ??P Abstract Quality Initiatives Please abstract the following data from this visit with this patient into the appropriate field in Epic: Pap smear done on this date: 11/2021 (approximately), by this group: clinic in [place], results were normal. Patient Reported LABORATORY EXTERNAL LAB External Lab from Last 3 Months or Most Recently Relevant to Health Maintenance Care Teams Network Strategist Relationship Specialty Start Date End Date No Ref-Primary, Physician PCP - General 12/21/21
--- OUTSIDE RECORDS SUMMARY | 2024-01-02 08:23 | XMS_ITS | Encounter Summary ---
Author Name Unknown Organization [facility] Address [address] [place] [id number] Care Team Providers Care Psychology Assistant Name Role Phone No Ref-Primary, Physician Primary Care Provider Encounter Details Date Type Department Care Team (Late st Contact Info) Description 12/22/2021 Documentation Only INTERFACED REPORT Unknown, Provider Social History Tobacco Use Types Packs/Day Years Used Date Smoking Tobacco: Never Assessed Sex and Gender Information Value Date Recorded Sex Assigned at Not on file Gender Identity Not on file Sexual Orientation Not on file COVID-19 Exposure Response Date Recorded In the last month, have you been in contact with someone who was confirmed or suspected to have Coronavirus / COVID-19? No / Unsure 12/21/2021 7:04 PM CDT documented as of this encounter Plan of Treatment Not on file documented as of this encounter Visit Diagnoses Not on filedocumented in this encounter Care Teams Psychology Assistant Relationship Specialty Start Date End Date No Ref-Primary, Physician PCP - General 12/21/21 documented as of this encounter
[2024-01-02 14:02] LABS: Chlamydia DNA Amplified* NOT DETECTED (No Detected); GC DNA Amplified* NOT DETECTED (No Detected)
== END 2024-01-02 08:21 | disposition home or self-care (01) ==
LOC: NFLDREF 08:21
PROVIDERS: Visit Provider Physician Assistant
DX: N89.8 Other specified noninflammatory disorders of vagina (principal); N92.1 Excessive and frequent menstruation with irregular cycle
CPT/HCPCS: 87491; 87591

== ENCOUNTER 2024-08-27 11:44 | Outpatient (CLI) | payer OTHER, SELFPAY ==
[2024-08-27 15:13] LABS: Chlamydia DNA Amplified* NOT DETECTED (No Detected); GC DNA Amplified* NOT DETECTED (No Detected)
[2024-08-29 00:55] LABS: HPV Source Cervix; HPV, High Risk by TMA Detected
[2024-08-29 07:51] LABS: HPV Genotype 16 by TMA Not Detected; HPV Genotype 18/45 by TMA Not Detected; HPVG Source Cervix
== END 2024-08-27 11:45 | disposition home or self-care (01) ==
PROVIDERS: Visit Provider Registered Nurse
DX: N89.8 Other specified noninflammatory disorders of vagina (principal); Z12.4 Encounter for screening for malignant neoplasm of cervix; Z11.3 Encounter for screening for infections with a predominantly sexual mode of transmission
CPT/HCPCS: 87491; 87591; 87624; 87625; 88141; 88142

== ENCOUNTER 2025-09-01 13:25 | Outpatient (CLI) | payer OTHER, SELFPAY ==
[2025-09-03 20:53] LABS: HPV Source Cervix
[2025-09-04 17:29] LABS: HPV Genotype 16 by TMA Not Detected; HPV Genotype 18/45 by TMA Not Detected
[2025-09-07 15:42] LABS: Pap Test Digital Imaging Done; Pap Test Reviewed by Pathologi Done
== END 2025-09-01 13:26 | disposition home or self-care (01) ==
PROVIDERS: Visit Provider Registered Nurse
DX: Z12.4 Encounter for screening for malignant neoplasm of cervix (principal)
CPT/HCPCS: 87624; 87625; 88141; 88142; 88175